=== PATIENT | female | born 1995 | race American Indian/Alaskan Native ===

== ENCOUNTER 2017-09-23 08:53 | Emergency (ER) | payer MEDICAID ==
[2017-09-23] MEDS ORDERED: ZOFRAN ODT PO ONE (10:05)
--- NOTE | 2017-09-23 10:09 | Emergency Department Report ---
ED General Adult HPI - General Chief complaint: Abdominal Pain Stated complaint: FOOD POISINING Time Seen by Provider: 09/23/17 09:50 Source: patient Mode of arrival: Ambulatory Limitations: No Limitations - History of Present Illness Initial comments: Patient complains of nausea, vomiting, and diarrhea since after eating at [employer]. Patient also complains of having some abdominal cramping as well. Patient denies fever, dysuria, chest pain. Nothing is noted to improve her symptoms or to make them worse besides eating. Patient has no other symptoms. -: Sudden Location: abdomen Radiation: non-radiation Severity scale (0 -10): 1 Quality: dull Consistency: constant Improves with: none Worsens with: none Associated Symptoms: denies other symptoms Treatments Prior to Arrival: none - Related Data Previous Rx's Medication Instructions Recorded Last Taken Type Hydrocodone Bit/Acetaminophen 1 each PO Q6HR #20 tablet 12/02/12 Unknown Rx [Lortab 5-500 Tablet] Ibuprofen [Motrin] 600 mg PO Q8H PRN #60 tablet 12/02/12 Unknown Rx Sulfamethoxazole/Trimethoprim 1 each PO BID #14 tablet 12/02/12 Unknown Rx [Bactrim DS] Ondansetron [Zofran Odt] 4 mg PO Q6HR PRN #20 tab.rapdis 09/23/17 Unknown Rx Promethazine [Phenergan TAB] 25 mg PO Q6HR PRN #20 tab 09/23/17 Unknown Rx Allergies Allergy/AdvReac Type Severity Reaction Status Date / Time No Known Allergies Allergy Verified 12/01/12 21:11 ED Review of Systems ROS: Stated complaint: FOOD POISINING Other details as noted in HPI Comment: All other systems reviewed and negative Constitutional: denies: chills, fever Eyes: denies: eye pain, eye discharge, vision change ENT: denies: ear pain, throat pain Respiratory: denies: cough, shortness of breath, wheezing Cardiovascular: denies: chest pain, palpitations Endocrine: no symptoms reported Gastrointestinal: nausea, vomiting. denies: abdominal pain, diarrhea Genitourinary: denies: urgency, dysuria, discharge Musculoskeletal: denies: back pain, joint swelling, arthralgia Skin: denies: rash, lesions Neurological: denies: headache, weakness, paresthesias Psychiatric: denies: anxiety, depression Hematological/Lymphatic: denies: easy bleeding, easy bruising ED Past Medical Hx - Past Medical History Previous Medical History?: No - Surgical History Past Surgical History?: No - Social History Smoking Status: Never Smoker Substance Use Type: None - Medications Home Medications: Home Medications Medication Instructions Recorded Confirmed Last Taken Type Hydrocodone Bit/Acetaminophen 1 each PO Q6HR #20 tablet 12/02/12 Unknown Rx [Lortab 5-500 Tablet] Ibuprofen [Motrin] 600 mg PO Q8H PRN #60 tablet 12/02/12 Unknown Rx Sulfamethoxazole/Trimethoprim 1 each PO BID #14 tablet 12/02/12 Unknown Rx [Bactrim DS] Ondansetron [Zofran Odt] 4 mg PO Q6HR PRN #20 tab.rapdis 09/23/17 Unknown Rx Promethazine [Phenergan TAB] 25 mg PO Q6HR PRN #20 tab 09/23/17 Unknown Rx ED Physical Exam - General Limitations: No Limitations ED Course Vital Signs 09/23/17 09:25 Temperature 98.4 F Pulse Rate 56 L Respiratory 16 Rate Blood Pressure 100/59 O2 Sat by Pulse 100 Oximetry ED Medical Decision Making - Medical Decision Making This with patient treatment plan which included blood work, IV fluids, IV antiemetic. Patient politely declined and just as for antiemetic by mouth and disposition home Critical care attestation.: If time is entered above; I have spent that time in minutes in the direct care of this critically ill patient, excluding procedure time. ED Disposition Clinical Impression: Nausea vomiting and diarrhea Disposition: DC-01 TO HOME OR SELFCARE Is pt being admited?: No Does the pt Need Aspirin: No Condition: Stable Instructions: Abdominal Pain (ED), Acute Nausea and Vomiting (ED) Additional Instructions: Return if worse Prescriptions: Ondansetron [Zofran Odt] 4 mg PO Q6HR PRN #20 tab.rapdis PRN Reason: Nausea Promethazine [Phenergan TAB] 25 mg PO Q6HR PRN #20 tab PRN Reason: Nausea Referrals: PRIMARY CARE,MD [Primary Care Provider] - 3-5 Days [facility] [Outside] - 3-5 Days Time of Disposition: 10:08
[2017-09-23 10:15] VITALS: BP 101/61
== END 2017-09-23 10:14 | disposition home or self-care (01) ==
LOC: ED 08:53
DX: R11.2 Nausea with vomiting, unspecified (principal); R19.7 Diarrhea, unspecified; R10.9 Unspecified abdominal pain
CPT/HCPCS: 99282; Q0162

== ENCOUNTER 2017-09-29 17:45 | Emergency (ER) | payer MEDICAID ==
[2017-09-29 20:02] LABS: Bilirubin,Urine NEG (Negative); Blood,Urine NEG (Negative); Color,Urine Yellow (Yellow); Mucus,Urine 3+ /HPF; Protein,Urine <15 mg/dL mg/dL (Negative); Urobilinogen,Urine < 2.0 mg/dL (<2.0); WBC,Urine < 1.0 /HPF (0.0-6.0)
[2017-09-29 20:07] LABS: HCG Qualitative,Urine Positive (Negative)
[2017-09-29] MEDS ORDERED: ZOFRAN IV ONE (21:16)
[2017-09-29] MEDS ORDERED: PEPCID IV ONE (21:16)
--- NOTE | 2017-09-29 21:30 | Emergency Department Report ---
ED N/V/D HPI - General Chief complaint: Nausea/Vomiting/Diarrhea Stated complaint: FOOD POISIONG WORSEN Time Seen by Provider: 09/29/17 21:00 Source: patient, old records reviewed Mode of arrival: Ambulatory Limitations: No Limitations - History of Present Illness Initial comments: 21-year-old female with no significant past medical or surgical history presents to the hospital with complaints of continued intermittent nausea, vomiting, decreased by mouth tolerance for the past 2 weeks. Patient thought that she had food poisoning. She actually presented here on 09/23 but declined blood work as per medical record and was prescribed by mouth Zofran and Phenergan. Patient states that she continues to have vomiting despite taking this medications. She has not had a decent bowel movement during this time. Positive epigastric discomfort that feels like a "nauseous sensation". She has some mild hematemesis last week that has since resolved. Today she vomited multiple times. She denies fevers, diarrhea, or dysuria. LMP 07/19/2017 and patient is unsure if she is . - Related Data Previous Rx's Medication Instructions Recorded Last Taken Type Hydrocodone Bit/Acetaminophen 1 each PO Q6HR #20 tablet 12/02/12 Unknown Rx [Lortab 5-500 Tablet] Ibuprofen [Motrin] 600 mg PO Q8H PRN #60 tablet 12/02/12 Unknown Rx Sulfamethoxazole/Trimethoprim 1 each PO BID #14 tablet 12/02/12 Unknown Rx [Bactrim DS] Promethazine [Phenergan TAB] 25 mg PO Q6HR PRN #20 tab 09/23/17 Unknown Rx Famotidine [Pepcid] 20 mg PO BID #20 tablet 09/30/17 Unknown Rx Ondansetron [Zofran Odt] 4 mg PO Q6HR PRN #20 tab.rapdis 09/30/17 Unknown Rx Allergies Allergy/AdvReac Type Severity Reaction Status Date / Time No Known Allergies Allergy Verified 12/01/12 21:11 ED Review of Systems ROS: Stated complaint: FOOD POISIONG WORSEN Other details as noted in HPI Comment: All other systems reviewed and negative ED Past Medical Hx - Past Medical History Previous Medical History?: No - Surgical History Past Surgical History?: No - Social History Smoking Status: Never Smoker Substance Use Type: None - Medications Home Medications: Home Medications Medication Instructions Recorded Confirmed Last Taken Type Hydrocodone Bit/Acetaminophen 1 each PO Q6HR #20 tablet 12/02/12 Unknown Rx [Lortab 5-500 Tablet] Ibuprofen [Motrin] 600 mg PO Q8H PRN #60 tablet 12/02/12 Unknown Rx Sulfamethoxazole/Trimethoprim 1 each PO BID #14 tablet 12/02/12 Unknown Rx [Bactrim DS] Promethazine [Phenergan TAB] 25 mg PO Q6HR PRN #20 tab 09/23/17 Unknown Rx Famotidine [Pepcid] 20 mg PO BID #20 tablet 09/30/17 Unknown Rx Ondansetron [Zofran Odt] 4 mg PO Q6HR PRN #20 tab.rapdis 09/30/17 Unknown Rx ED Physical Exam - General Limitations: No Limitations - Other Other exam information: General: No limitations, patient is alert in no acute distress Head exam: Atraumatic, normocephalic Eyes exam: Normal appearance ENT: Dry mucous membranes Neck exam: Normal inspection, full range of motion, no meningismus nontender Respiratory exam: Clear to auscultation bilateral, no wheezes, rales, crackles Cardiovascular: Normal rate and rhythm, normal heart sounds Abdomen: Soft, nondistended, mild epigastric discomfort, with normal bowel sounds, no rebound, or guarding Extremity: Full range of motion normal inspection no deformity Back: Normal Inspection, full range of motion, no tenderness Neurologic: Alert, oriented x3, cranial nerves intact, no motor or sensory deficit Psychiatric: normal affect, normal mood Skin: Warm, dry, intact ED Course Vital Signs 09/29/17 09/29/17 18:18 21:08 Temperature 98.0 F 98.1 F Pulse Rate 88 87 Respiratory 16 16 Rate Blood Pressure 120/80 Blood Pressure 123/71 [Left] O2 Sat by Pulse 100 99 Oximetry ED Medical Decision Making - Lab Data Result diagrams: 09/29/17 21:29 09/29/17 21:29 Lab Results 09/29/17 09/29/17 09/29/17 Range/Units 19:01 21:29 21:29 WBC 7.1 (4.5-11.0) K/mm3 RBC 4.63 (3.65-5.03) M/mm3 Hgb 13.2 (10.1-14.3) gm/dl Hct 39.5 (30.3-42.9) % MCV 85 (79-97) fl MCH 29 (28-32) pg MCHC 34 (30-34) % RDW 13.3 (13.2-15.2) % Plt Count 169 (140-440) K/mm3 Lymph % (Auto) 19.8 (13.4-35.0) % [place] % (Auto) 6.9 (0.0-7.3) % Eos % (Auto) 0.5 (0.0-4.3) % Baso % (Auto) 0.5 (0.0-1.8) % Lymph # 1.4 (1.2-5.4) K/mm3 [place] # 0.5 (0.0-0.8) K/mm3 Eos # 0.0 (0.0-0.4) K/mm3 Baso # 0.0 (0.0-0.1) K/mm3 Seg Neutrophils % 72.3 H (40.0-70.0) % Seg Neutrophils # 5.1 (1.8-7.7) K/mm3 Sodium 134 L (137-145) mmol/L Potassium 4.1 (3.6-5.0) mmol/L Chloride 96.1 L (98-107) mmol/L Carbon Dioxide 23 (22-30) mmol/L Anion Gap 19 mmol/L BUN 6 L (7-17) mg/dL Creatinine 0.5 L (0.7-1.2) mg/dL Estimated GFR > 60 ml/min BUN/Creatinine Ratio 12 % Glucose 86 (65-100) mg/dL Calcium 9.7 (8.4-10.2) mg/dL Total Bilirubin 0.30 (0.1-1.2) mg/dL AST 17 (5-40) units/L ALT 16 (7-56) units/L Alkaline Phosphatase 84 (35-129) units/L Total Protein 7.1 (6.3-8.2) g/dL Albumin 4.0 (3.9-5) g/dL Albumin/Globulin Ratio 1.3 % Lipase 18 (13-60) units/L HCG, Quant (0-4) mIU/mL Urine Color Yellow (Yellow) Urine Turbidity Clear (Clear) Urine pH 6.0 (5.0-7.0) Ur Specific [place] 1.023 (1.003-1.030) Urine Protein <15 mg/dl (Negative) mg/dL Urine Glucose (UA) Neg (Negative) mg/dL Urine Ketones 80 (Negative) mg/dL Urine Blood Neg (Negative) Urine Nitrite Neg (Negative) Urine Bilirubin Neg (Negative) Urine Urobilinogen < 2.0 (<2.0) mg/dL Ur Leukocyte Esterase Neg (Negative) Urine WBC (Auto) < 1.0 (0.0-6.0) /HPF Urine RBC (Auto) 1.0 (0.0-6.0) /HPF U Epithel Cells (Auto) 5.0 (0-13.0) /HPF Urine Mucus 3+ /HPF Urine HCG, Qual Positive A (Negative) 09/29/17 Range/Units 21:29 WBC (4.5-11.0) K/mm3 RBC (3.65-5.03) M/mm3 Hgb (10.1-14.3) gm/dl Hct (30.3-42.9) % MCV (79-97) fl MCH (28-32) pg MCHC (30-34) % RDW (13.2-15.2) % Plt Count (140-440) K/mm3 Lymph % (Auto) (13.4-35.0) % [place] % (Auto) (0.0-7.3) % Eos % (Auto) (0.0-4.3) % Baso % (Auto) (0.0-1.8) % Lymph # (1.2-5.4) K/mm3 [place] # (0.0-0.8) K/mm3 Eos # (0.0-0.4) K/mm3 Baso # (0.0-0.1) K/mm3 Seg Neutrophils % (40.0-70.0) % Seg Neutrophils # (1.8-7.7) K/mm3 Sodium (137-145) mmol/L Potassium (3.6-5.0) mmol/L Chloride (98-107) mmol/L Carbon Dioxide (22-30) mmol/L Anion Gap mmol/L BUN (7-17) mg/dL Creatinine (0.7-1.2) mg/dL Estimated GFR ml/min BUN/Creatinine Ratio % Glucose (65-100) mg/dL Calcium (8.4-10.2) mg/dL Total Bilirubin (0.1-1.2) mg/dL AST (5-40) units/L ALT (7-56) units/L Alkaline Phosphatase (35-129) units/L Total Protein (6.3-8.2) g/dL Albumin (3.9-5) g/dL Albumin/Globulin Ratio % Lipase (13-60) units/L HCG, Quant [id number] H (0-4) mIU/mL Urine Color (Yellow) Urine Turbidity (Clear) Urine pH (5.0-7.0) Ur Specific [place] (1.003-1.030) Urine Protein (Negative) mg/dL Urine Glucose (UA) (Negative) mg/dL Urine Ketones (Negative) mg/dL Urine Blood (Negative) Urine Nitrite (Negative) Urine Bilirubin (Negative) Urine Urobilinogen (<2.0) mg/dL Ur Leukocyte Esterase (Negative) Urine WBC (Auto) (0.0-6.0) /HPF Urine RBC (Auto) (0.0-6.0) /HPF U Epithel Cells (Auto) (0-13.0) /HPF Urine Mucus /HPF Urine HCG, Qual (Negative) - Radiology Data Radiology results: report reviewed ob pelvic/transvag us: + IUP [id number] +fh 143 - Medical Decision Making Patient presents with persistent nausea and vomiting 2 weeks. Patient presents with dehydration as evident by increased ketones in urine. No electrolytes, leukocytosis, anemia, or UTI. Ultrasound confirms positive IUP Symptoms improved after Zofran and D5 in 2 L Patient also received IV Pepcid Be discharged on medication for nausea vomiting control, pepcid, and encouraged to initiate care. Zofran will be continued since patient states it does help with her symptoms. - Differential Diagnosis , gastritis, food poisoning, pancreatitis, hepatitis Critical Care Time: No Critical care attestation.: If time is entered above; I have spent that time in minutes in the direct care of this critically ill patient, excluding procedure time. ED Disposition Clinical Impression: 7 weeks gestation of , Nausea and vomiting during , Gastritis , Nausea vomiting and diarrhea Disposition: DC- TO HOME OR SELFCARE Is pt being admited?: No Does the pt Need Aspirin: No Condition: Stable Instructions: Morning Sickness (ED), Gastritis (ED), (ED) Additional Instructions: Take the medication as prescribed. Follow-up with the [facility] doctor provided with a doctor if his choice. Return if symptoms worsen as indicated by your discharge instructions. You were provided a copy of your ultrasound report for follow-up. Prescriptions: Famotidine [Pepcid] 20 mg PO BID #20 tablet Ondansetron [Zofran Odt] 4 mg PO Q6HR PRN #20 tab.rapdis PRN Reason: Nausea Referrals: IZZY HOLLY MD [Staff Physician] - 3-5 Days ([facility] doctor ) Time of Disposition: 00:32
[2017-09-29 21:45] LABS: Basophils % (Auto) 0.5 % (0.0-1.8); Eosinophils % (Auto) 0.5 % (0.0-4.3); Hematocrit 39.5 % (30.3-42.9); Hemoglobin 13.2 gm/dl (10.1-14.3); Lymphocytes # (Auto) 1.4 K/mm3 (1.2-5.4); Lymphocytes % (Auto) 19.8 % (13.4-35.0); Mean Corpuscular HGB Conc 34 % (30-34); Mean Corpuscular Hemoglobin 29 pg (28-32); Mean Corpuscular Volume 85 fl (79-97); Monocytes # (Auto) 0.5 K/mm3 (0.0-0.8); Monocytes % (Auto) 6.9 % (0.0-7.3); Platelet Count 169 K/mm3 (140-440); Red Blood Count 4.63 M/mm3 (3.65-5.03); Red Cell Distribution Width 13.3 % (13.2-15.2)
[2017-09-29] MEDS ORDERED: D5NS 1,000 ML IV SCH ×3 (22:00→23:00)
[2017-09-29 22:07] LABS: Alanine Aminotransferase 16 units/L (7-56); BUN/Creatinine Ratio 12; Blood Urea Nitrogen 6 mg/dL (7-17); Calcium 9.7 mg/dL (8.4-10.2); Hemolysis Index 1; Lipase 18 units/L (13-60)
--- NOTE | 2017-09-29 23:44 | Ultrasound Report ---
FINAL REPORT EXAM: US OB < = 14 WEEKS FETUS HISTORY: vomiting, TECHNIQUE: Transabdominal grayscale, color flow and M-mode imaging of the pelvis was performed. Comparison: Transvaginal study also performed today FINDINGS: The uterus measures 10.5 centimeters x 8.2 centimeters x 8.7 centimeters. There is an intrauterine gestational sac with yolk sac and pole. [place]-rump length measures 11.7 millimeters consistent with 7 weeks 2 days gestation. heart rate is measured at 143 beats per minute. The ovaries are not visualized on the transabdominal study. No free fluid is demonstrated in the pelvis. IMPRESSION: 1. Demonstration of intrauterine gestation with estimated gestational age of 7 weeks 2 days by transabdominal measurements of crown-rump length and heart rate of 143 beats per minute.
--- NOTE | 2017-09-29 23:49 | Ultrasound Report ---
FINAL REPORT EXAM: US OB TRANSVAGINAL HISTORY: vomiting, TECHNIQUE: Transvaginal grayscale, color flow and M-mode imaging of the pelvis was performed. Comparison: Transabdominal study also performed today FINDINGS: There is demonstration of an intrauterine gestational sac with yolk sac and pole. [place]-rump length is measured at 12.5 millimeters consistent with gestational age of 7 weeks 3 days. heart rate is measured at 143 beats per minute. The right ovary measures 3.4 centimeters x 2.1 centimeters x 1.9 centimeters, is normal in appearance and contains follicles. Flow is demonstrated in the right ovary utilizing color flow imaging. The left ovary measures 2 centimeters x 3.1 centimeters x 3.1 centimeters, is normal in appearance and contains follicles and a small, approximately 1.7 centimeter probable corpus luteum cyst. No free fluid is demonstrated in the pelvis. IMPRESSION: 1. Demonstration of an intrauterine gestation with estimated gestational age of 7 weeks 3 days by measurements of crown-rump length with heart rate of 143 beats per minute.
[2017-09-30 01:22] VITALS: BP 102/62
== END 2017-09-30 01:24 | disposition home or self-care (01) ==
LOC: ED 17:45
DX: O99.611 Diseases of the digestive system complicating pregnancy, first trimester (principal); K29.70 Gastritis, unspecified, without bleeding; Z3A.01 Less than 8 weeks gestation of pregnancy
CPT/HCPCS: 36415; 76801; 76817; 80053; 81001; 81025; 83690; 84702; 85025; 96361; 96374; 96375; 99284; J2405; J7042

== ENCOUNTER 2017-10-20 10:17 | Emergency (ER) | payer MEDICAID ==
[2017-10-20 10:35] VITALS: BP 100/65
--- NOTE | 2017-10-20 11:33 | Emergency Department Report ---
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 Patient has some mild crampy lower abdominal discomfort. Patient 's has a confirmed from our hospital. Patient denies any dysuria nausea vomiting at this time. Patient will have a beta Quant ultrasound done and patient will be reassessed.
[2017-10-20] MEDS ORDERED: PERCOCET 5/325 ONE (11:41)
[2017-10-20 12:10] LABS: Bilirubin,Urine NEG (Negative); Color,Urine Yellow (Yellow)
[2017-10-20 12:11] LABS: Bacteria,Urine 1+ /HPF (Negative); Blood,Urine MOD (Negative); Mucus,Urine 3+ /HPF
--- NOTE | 2017-10-20 13:55 | Emergency Department Report ---
ED HPI - General Chief complaint: Vaginal Bleeding Stated complaint: 3MOS /SPOTTING Time Seen by Provider: 10/20/17 11:27 Source: patient Mode of arrival: Ambulatory Limitations: No Limitations - History of Present Illness Initial comments: Patient is a 21-year-old Females roughly 9 weeks who is presenting with vaginal. Patient states she has very mild suprapubic discomfort. Patient is denying any dysuria or fevers chills nausea vomiting at this time. Patient states she woke up this morning with spotting. - Related Data Previous Rx's Medication Instructions Recorded Last Taken Type Hydrocodone Bit/Acetaminophen 1 each PO Q6HR #20 tablet 12/02/12 Unknown Rx [Lortab 5-500 Tablet] Ibuprofen [Motrin] 600 mg PO Q8H PRN #60 tablet 12/02/12 Unknown Rx Sulfamethoxazole/Trimethoprim 1 each PO BID #14 tablet 12/02/12 Unknown Rx [Bactrim DS] Promethazine [Phenergan TAB] 25 mg PO Q6HR PRN #20 tab 09/23/17 Unknown Rx Famotidine [Pepcid] 20 mg PO BID #20 tablet 09/30/17 Unknown Rx Ondansetron [Zofran Odt] 4 mg PO Q6HR PRN #20 tab.rapdis 09/30/17 Unknown Rx Allergies Allergy/AdvReac Type Severity Reaction Status Date / Time No Known Allergies Allergy Verified 12/01/12 21:11 ED Review of Systems ROS: Stated complaint: 3MOS /SPOTTING Other details as noted in HPI Comment: All other systems reviewed and negative ED Past Medical Hx - Past Medical History Previous Medical History?: No - Surgical History Past Surgical History?: No - Social History Smoking Status: Never Smoker Substance Use Type: None - Medications Home Medications: Home Medications Medication Instructions Recorded Confirmed Last Taken Type Hydrocodone Bit/Acetaminophen 1 each PO Q6HR #20 tablet 12/02/12 Unknown Rx [Lortab 5-500 Tablet] Ibuprofen [Motrin] 600 mg PO Q8H PRN #60 tablet 12/02/12 Unknown Rx Sulfamethoxazole/Trimethoprim 1 each PO BID #14 tablet 12/02/12 Unknown Rx [Bactrim DS] Promethazine [Phenergan TAB] 25 mg PO Q6HR PRN #20 tab 09/23/17 Unknown Rx Famotidine [Pepcid] 20 mg PO BID #20 tablet 09/30/17 Unknown Rx Ondansetron [Zofran Odt] 4 mg PO Q6HR PRN #20 tab.rapdis 09/30/17 Unknown Rx ED Physical Exam - General Limitations: No Limitations General appearance: alert, in no apparent distress - Head Head exam: Present: atraumatic, normocephalic - Eye Eye exam: Present: normal appearance - ENT ENT exam: Present: mucous membranes moist - Neck Neck exam: Present: normal inspection - Respiratory Respiratory exam: Present: normal lung sounds bilaterally. Absent: respiratory distress, wheezes, rales, rhonchi - Cardiovascular Cardiovascular Exam: Present: regular rate, normal rhythm. Absent: systolic murmur, diastolic murmur, rubs, gallop - GI/Abdominal GI/Abdominal exam: Present: soft, normal bowel sounds. Absent: distended, tenderness, guarding, rebound - Extremities Exam Extremities exam: Present: normal inspection - Back Exam Back exam: Present: normal inspection - Neurological Exam Neurological exam: Present: alert, oriented X3 - Psychiatric Psychiatric exam: Present: normal affect, normal mood - Skin Skin exam: Present: warm, dry, intact, normal color. Absent: rash ED Course Vital Signs 10/20/17 10:33 Temperature 98.8 F Pulse Rate 85 Respiratory 16 Rate Blood Pressure 100/65 O2 Sat by Pulse 100 Oximetry ED Medical Decision Making - Lab Data Lab Results 10/20/17 10/20/17 Range/Units 11:32 11:51 HCG, Quant [id number] H (0-4) mIU/mL Urine Color Yellow (Yellow) Urine Turbidity Slightly-cloudy (Clear) Urine pH 6.0 (5.0-7.0) Ur Specific [place] 1.027 (1.003-1.030) Urine Protein 30 mg/dl (Negative) mg/dL Urine Glucose (UA) Neg (Negative) mg/dL Urine Ketones 20 (Negative) mg/dL Urine Blood Mod (Negative) Urine Nitrite Neg (Negative) Urine Bilirubin Neg (Negative) Urine Urobilinogen 4.0 (<2.0) mg/dL Ur Leukocyte Esterase Neg (Negative) Urine WBC (Auto) 2.0 (0.0-6.0) /HPF Urine RBC (Auto) 5.0 (0.0-6.0) /HPF U Epithel Cells (Auto) 12.0 (0-13.0) /HPF Urine Bacteria (Auto) 1+ (Negative) /HPF Urine Mucus 3+ /HPF - Radiology Data interpreted by me: Viable IUP with heart rate of 160 - Medical Decision Making Patient continues to have a viable IUP. Urinalysis is within normal limits. Patient is instructed to rest at home also have pelvic rest as well and will have follow with her [facility]. Patient states her Rh status is positive Critical care attestation.: If time is entered above; I have spent that time in minutes in the direct care of this critically ill patient, excluding procedure time. ED Disposition Clinical Impression: Threatened miscarriage Disposition: DC-01 TO HOME OR SELFCARE Is pt being admited?: No Does the pt Need Aspirin: No Condition: Stable Instructions: Threatened Miscarriage (ED) Time of Disposition: 13:55
--- NOTE | 2017-10-20 15:14 | Ultrasound Report ---
FINAL REPORT EXAM: US OB TRANSVAGINAL HISTORY: spotting COMPARISON: Obstetric ultrasound performed on 09/29/2017 TECHNIQUE: Transvaginal obstetric ultrasound was performed FINDINGS: The uterus measures 10.8 x 8.5 x 10.9 centimeters. There is a single live intrauterine with gestational sac diameter corresponding to a gestational age of 9 weeks, 6 days. [place]-rump length corresponds to a gestational age of 10 weeks, 5 days. Composite gestational age by ultrasound is 10 weeks, 2 days, with estimated date of delivery of 05/16/2018. heart rate is 160 beats per minute. The right ovary measures 1.9 x 0.9 x 1.5 centimeters and is normal in morphology. The left ovary measures 2.1 x 1.4 x 1.8 centimeters and is normal in morphology. IMPRESSION: Single live intrauterine with composite gestational age by ultrasound of 10 weeks, 2 days, with estimated date of delivery of 05/16/2018. No obvious abnormalities.
--- NOTE | 2017-10-20 15:16 | Ultrasound Report ---
FINAL REPORT EXAM: US OB < = 14 WEEKS FETUS HISTORY: spotting COMPARISON: Obstetric ultrasound performed on 09/29/2017 TECHNIQUE: Transabdominal obstetric imaging of the pelvis was performed FINDINGS: The uterus measures 10.8 x 8.5 x 10.9 centimeters. There is a single live intrauterine with gestational sac diameter corresponding to a gestational age of 9 weeks, 6 days. [place]-rump length corresponds to a gestational age of 10 weeks, 5 days. Composite gestational age by ultrasound is 10 weeks, 2 days, with estimated date of delivery of 05/16/2018. heart rate is 160 beats per minute. The right ovary measures 1.9 x 0.9 x 1.5 centimeters and is normal in morphology. The left ovary measures 2.1 x 1.4 x 1.8 centimeters and is normal in morphology. IMPRESSION: Single live intrauterine with composite gestational age by ultrasound of 10 weeks, 2 days, with estimated date of delivery of 05/16/2018. No obvious abnormalities.
== END 2017-10-20 14:12 | disposition home or self-care (01) ==
LOC: ED 10:17
DX: O20.0 Threatened abortion (principal); Z3A.09 9 weeks gestation of pregnancy
CPT/HCPCS: 36415; 76801; 76817; 81001; 84702; 86850; 86900; 86901

== ENCOUNTER 2018-05-01 00:01 | Emergency (ER) | payer MEDICAID ==
[2018-05-01] MEDS ORDERED: NORCO 7.5/325 ONE (01:12)
[2018-05-01] MEDS ORDERED: NORCO 7.5/325 PO ONE (01:13)
--- NOTE | 2018-05-01 01:17 | Emergency Department Report ---
ED General Adult HPI - General Chief complaint: Dyspnea/Respdistress Stated complaint: SOB Time Seen by Provider: 05/01/18 01:12 Source: patient Mode of arrival: Ambulatory Limitations: No Limitations - History of Present Illness Initial comments: 22-year-old -Indian female comes in status post 3 days pain on both breasts. Patient reports that she is breast-feeding but breasts are soldering machine tender and engorged. Patient reports she was discharged home with no pain medication and was using a hand-held breast pump which she reports has broken. Severity scale (0 -10): 0 - Related Data Previous Rx's Medication Instructions Recorded Last Taken Type Hydrocodone Bit/Acetaminophen 1 each PO Q6HR #20 tablet 12/02/12 Unknown Rx [Lortab 5-500 Tablet] Ibuprofen [Motrin] 600 mg PO Q8H PRN #60 tablet 12/02/12 Unknown Rx Sulfamethoxazole/Trimethoprim 1 each PO BID #14 tablet 12/02/12 Unknown Rx [Bactrim DS] Promethazine [Phenergan TAB] 25 mg PO Q6HR PRN #20 tab 09/23/17 Unknown Rx Famotidine [Pepcid] 20 mg PO BID #20 tablet 09/30/17 Unknown Rx Ondansetron [Zofran Odt] 4 mg PO Q6HR PRN #20 tab.rapdis 09/30/17 Unknown Rx Pnv No.118/Iron Fumarate/FA 1 each PO QDAY #30 tab.chew 10/20/17 Unknown Rx [ 19 Chewable] Cyclobenzaprine HCl [Flexeril 5 MG 5 mg PO BID #8 tab 12/29/17 Unknown Rx TAB] Nitrofurantoin Monohyd/M-Cryst 100 mg PO BID #6 capsule 12/29/17 Unknown Rx [Macrobid 100 mg Capsule] Acetaminophen/Codeine [Tylenol 1 tab PO Q6H PRN 3 Days #12 tab 05/01/18 Unknown Rx /Codeine # 3 tab] Ibuprofen [Motrin 600 MG tab] 600 mg PO Q8H PRN #30 tablet 05/01/18 Unknown Rx Allergies Allergy/AdvReac Type Severity Reaction Status Date / Time No Known Allergies Allergy Verified 12/01/12 21:11 ED Review of Systems ROS: Stated complaint: SOB Other details as noted in HPI ED Past Medical Hx - Past Medical History Previous Medical History?: No - Surgical History Past Surgical History?: No - Social History Smoking Status: Never Smoker Substance Use Type: None - Medications Home Medications: Home Medications Medication Instructions Recorded Confirmed Last Taken Type Hydrocodone Bit/Acetaminophen 1 each PO Q6HR #20 tablet 12/02/12 Unknown Rx [Lortab 5-500 Tablet] Ibuprofen [Motrin] 600 mg PO Q8H PRN #60 tablet 12/02/12 Unknown Rx Sulfamethoxazole/Trimethoprim 1 each PO BID #14 tablet 12/02/12 Unknown Rx [Bactrim DS] Promethazine [Phenergan TAB] 25 mg PO Q6HR PRN #20 tab 09/23/17 Unknown Rx Famotidine [Pepcid] 20 mg PO BID #20 tablet 09/30/17 Unknown Rx Ondansetron [Zofran Odt] 4 mg PO Q6HR PRN #20 tab.rapdis 09/30/17 Unknown Rx Pnv No.118/Iron Fumarate/FA 1 each PO QDAY #30 tab.chew 10/20/17 Unknown Rx [ 19 Chewable] Cyclobenzaprine HCl [Flexeril 5 MG 5 mg PO BID #8 tab 12/29/17 Unknown Rx TAB] Nitrofurantoin Monohyd/M-Cryst 100 mg PO BID #6 capsule 12/29/17 Unknown Rx [Macrobid 100 mg Capsule] Acetaminophen/Codeine [Tylenol 1 tab PO Q6H PRN 3 Days #12 tab 05/01/18 Unknown Rx /Codeine # 3 tab] Ibuprofen [Motrin 600 MG tab] 600 mg PO Q8H PRN #30 tablet 05/01/18 Unknown Rx ED Physical Exam - General Limitations: No Limitations General appearance: alert, in no apparent distress - Head Head exam: Present: atraumatic, normocephalic - ENT ENT exam: Present: mucous membranes moist - Neck Neck exam: Present: normal inspection - Respiratory Respiratory exam: Present: normal lung sounds bilaterally, other (bilateral breast engorgement with no erythematous non-edematous. Breasts leaking milk. She does not have a bra on.). Absent: respiratory distress - Cardiovascular Cardiovascular Exam: Present: regular rate, normal rhythm. Absent: systolic murmur, diastolic murmur, rubs, gallop - GI/Abdominal GI/Abdominal exam: Present: soft. Absent: distended, tenderness - Neurological Exam Neurological exam: Present: alert, oriented X3 - Psychiatric Psychiatric exam: Present: normal affect, normal mood - Skin Skin exam: Present: warm, dry, intact, normal color. Absent: rash ED Course Vital Signs 05/01/18 00:09 Temperature 99.1 F Pulse Rate 90 Respiratory 26 H Rate Blood Pressure 107/78 O2 Sat by Pulse 100 Oximetry Critical care attestation.: If time is entered above; I have spent that time in minutes in the direct care of this critically ill patient, excluding procedure time. ED Disposition Clinical Impression: Breast engorgement, Disposition: [id number] TO HOME OR SELFCARE Is pt being admited?: No Does the pt Need Aspirin: No Condition: Stable Instructions: Breast Fullness Versus Breast Engorgement (ED) Additional Instructions: Please take pain medication as prescribed and as needed. Please apply warm compresses to progress. Please allow baby to the nurse on both breasts. He can also get enough warm hot shower to help with pain. Very important for you to wear a support bra and contact her core extruder to see if you eligible for a electronic breast pump Prescriptions: Ibuprofen [Motrin 600 MG tab] 600 mg PO Q8H PRN #30 tablet PRN Reason: Pain Acetaminophen/Codeine [Tylenol /Codeine # 3 tab] 1 tab PO Q6H PRN 3 Days #12 tab PRN Reason: Pain , Severe (7-10) Referrals: NOAH WOOD MD [Primary Care Provider] - 3-5 Days Your, core extruder [Other] - 3-5 Days
== END 2018-05-01 01:23 | disposition home or self-care (01) ==
LOC: ED 00:01
DX: O92.79 Other disorders of lactation (principal)
CPT/HCPCS: 93005; 93010; 99282

== ENCOUNTER 2018-11-26 17:19 | Emergency (ER) | payer MEDICAID ==
[2018-11-26 17:39] VITALS: BP 109/79
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
== END 2018-11-26 18:10 | disposition left against medical advice (07) ==
LOC: ED 17:19
DX: Z53.21 Procedure and treatment not carried out due to patient leaving prior to being seen by health care provider (principal)